=== PATIENT | male | born 1965 | race Two or more races ===

== ENCOUNTER 2018-04-01 13:48 | Emergency (ER) | payer SELFPAY ==
[~2018-04-01] VITALS: Ht 170.2 cm; Wt 100.0 kg
[2018-04-01 14:34] VITALS: BP 134/77
== END 2018-04-01 14:52 | disposition home or self-care (01) ==
LOC: EMS 13:50
DX: F10.20 Alcohol dependence, uncomplicated (principal); R03.0 Elevated blood-pressure reading, without diagnosis of hypertension; Y90.9 Presence of alcohol in blood, level not specified